=== PATIENT | male | born 1950 | race Caucasian/White ===

== ENCOUNTER → 2019-09-10 10:05 | Outpatient (CLI) | payer OTHER ==
[2019-09-10 10:35] LABS: HEMATOCRIT 26.9 % (42.0-54.0); HEMOGLOBIN 8.5 g/dL (13.5-17.5); MCH 31.5 pg (26.0-34.0); MCHC 31.6 g/dL (31.0-37.0); MCV 99.6 fL (80.0-100.0); MEAN PLATELET VOLUME 10.5 fL (7.4-10.4); PLATELET COUNT 79 10x3/uL (130-400); RDW 20.7 % (11.5-14.5); WBC 2.3 10x3/uL (4.8-10.8)
[2019-09-10 14:03] LABS: ANISOCYTOSIS 1+; EOSINOPHILS 1 % (0-7); LYMPHOCYTES 33 % (15-50); MONOCYTES 18 % (2-11); NEUTROPHILS 46 % (40-80); PLATELET ESTIMATE DECREASED
== END | disposition home or self-care (01) ==
LOC: D.LAB 09-01 10:00
PROVIDERS: ATTEND Orthopaedic Surgery
DX: Z02.71 Encounter for disability determination (principal)